=== PATIENT | male | born 1980 | race Caucasian/White ===

== ENCOUNTER 2018-03-27 18:21 | Emergency (ER) | payer OTHER, SELFPAY ==
[~2018-03-27] VITALS: Ht 177.8 cm; Wt 82.0 kg
[2018-03-27] MEDS ORDERED: SILVER SULF. CRM 1% , 25GM TP ONE (18:30)
[2018-03-27] MEDS ORDERED: SILVER SULF. CRM 1% , 25GM ONE (18:35)
[2018-03-27] MEDS ORDERED: LIDOCAINE-MPF 2%, 2ML ONE (18:49)
[2018-03-27] MEDS ORDERED: DIPH,PERTUSS(ACELL),TET VAC/PF 0.5 ML IM-VACC ONE ×2 (18:49→19:30)
[2018-03-27] MEDS ORDERED: IBUPROFEN 200 MG TABLET PO ONE (19:00)
[2018-03-27] MEDS ORDERED: LIDOCAINE-MPF 1%, 5ML INFIL ONE (19:00)
[2018-03-27] MEDS ORDERED: HYDROcodone/APAP 5/325 TABLET ONE ×2 (19:08→20:14)
[2018-03-27] MEDS ORDERED: IBUPROFEN 200 MG TABLET ONE (19:08)
[2018-03-27] MEDS ORDERED: HYDROcodone/APAP 5/325 TABLET PO ONE ×2 (19:30→20:30)
[2018-03-27 20:20] VITALS: BP 116/68
== END 2018-03-27 20:22 | disposition home or self-care (01) ==
LOC: ED 20:16
DX: T23.241A Burn of second degree of multiple right fingers (nail), including thumb, initial encounter (principal); T31.0 Burns involving less than 10% of body surface; Z88.8 Allergy status to other drugs, medicaments and biological substances; X18.XXXA Contact with other hot metals, initial encounter; Y93.89 Activity, other specified; Y99.8 Other external cause status; Y92.89 Other specified places as the place of occurrence of the external cause
CPT/HCPCS: 29125; 64450; 90471; 90715

== ENCOUNTER 2020-01-08 05:46 | Day surgery (SDC) | payer OTHER ==
[2020-01-06 11:18] VITALS: BP 128/87
[2020-01-06 12:07] LABS: BASOPHILS # (AUTO) 0.04 x10^3/uL (0-0.1); BASOPHILS % (AUTO) 1 % (0-1); EOSINOPHILS # (AUTO) 0.11 x10^3/uL (0-0.4); EOSINOPHILS % (AUTO) 2 % (1-7); LYMPHOCYTES # (AUTO) 1.81 x10^3/uL (1-3.4); LYMPHOCYTES % (AUTO) 36 % (22-44); MD NO; MEAN CORPUSCULAR HGB CONC 34.4 g/dL (33.2-36.2); MEAN CORPUSCULAR VOLUME 90.2 fL (81-97); MEAN PLATELET VOLUME 7.9 fL (7.4-10.4); MONOCYTES # (AUTO) 0.51 x10^3/uL (0.2-0.8); MONOCYTES % (AUTO) 10 % (2-9); NEUTROPHILS # (AUTO) 2.52 x10^3/uL (1.8-6.8); NEUTROPHILS % (AUTO) 51 % (42-75); PLATELET COUNT 252 x10^3/uL (130-400); RED BLOOD COUNT 5.14 x10^6/uL (4.38-5.82)
[2020-01-06 12:13] LABS: INTERNATIONAL NORMALIZED RATIO 0.97 (0.93-1.1); PROTHROMBIN TIME 10.3 Seconds (9.6-11.5)
[2020-01-06 12:15] LABS: ALANINE AMINOTRANSFERASE 30 U/L (12-78); ALBUMIN 4.1 g/dL (3.4-5.0); ANION GAP 6 mmol/L (5-15); CALCIUM 8.8 mg/dL (8.5-10.1); CHLORIDE 107 mmol/L (98-107); CREATININE 0.95 mg/dL (0.7-1.3)
[2020-01-06 12:17] LABS: ALKALINE PHOSPHATASE 65 U/L (45-117); TOTAL PROTEIN 8.1 g/dL (6.4-8.2)
[~2020-01-08] VITALS: Ht 177.8 cm; Wt 83.9 kg
[~2020-01-08 05:46] MED LIST: NONE PER PT
[2020-01-08] MEDS ORDERED: BUPIVACAINE/PF-EPI 0.5% 1:200K ONE (06:35)
[2020-01-08] MEDS ORDERED: LACTATED RINGERS 1,000 ML IV SCH (06:41)
[2020-01-08] MEDS ORDERED: CHLORHEXIDINE 15 ML UDC MM ONE (07:00)
[2020-01-08] MEDS ORDERED: FENTANYL PF 250 MCG/5ML ONE (07:25)
[2020-01-08] MEDS ORDERED: LIDOCAINE PF 2%, 5ML ONE (07:26)
[2020-01-08] MEDS ORDERED: ACETAMINOPHEN 325 MG TABLET PO PRN (08:00)
[2020-01-08] MEDS ORDERED: FENTANYL PF 100 MCG/2ML IV PRN (08:00)
[2020-01-08] MEDS ORDERED: OXYcodone 5 MG/5 ML ORAL.SOL UDC PO PRN (08:00)
[2020-01-08] MEDS ORDERED: PROMETHAZINE 25 MG SUPP PR PRN (08:00)
[2020-01-08] MEDS ORDERED: ONDANSETRON 2MG/ML, 2ML IVPush PRN (08:00)
[2020-01-08] MEDS ORDERED: PROMETHAZINE 25 MG/ML, 1ML IVPush PRN (08:00)
[2020-01-08] MEDS ORDERED: HYDROmorphone 1 MG/ML, 1ML INJ IVPush PRN (08:00)
[2020-01-08] MEDS ORDERED: ONDANSETRON 2MG/ML, 2ML ONE (08:10)
[2020-01-08] MEDS ORDERED: DEXAMETHASONE 4 MG/ML, 1ML ONE (08:10)
[2020-01-08] MEDS ORDERED: CEFAZOLIN 1,000 MG ONE (08:10)
[2020-01-08] MEDS ORDERED: PROPOFOL 10 MG/ML, 20ML ONE (08:10)
[2020-01-08] MEDS ORDERED: OXYcodone 5 MG/5 ML ORAL.SOL UDC ONE (08:25)
[2020-01-08] MEDS ORDERED: KETOROLAC 30 MG/1 ML ONE (08:25)
[2020-01-08] MEDS ORDERED: ACETAMINOPHEN 650 MG/20.3 ML UDC ONE (08:25)
[2020-01-08] MEDS ORDERED: KETOROLAC 30 MG/1 ML IVPush ONE (08:30)
[2020-01-08] MEDS ORDERED: FENTANYL PF 100 MCG/2ML ONE (08:32)
== END 2020-01-08 10:00 | disposition home or self-care (01) ==
LOC: OUT 05:46 → EDSTATUS 07:30 → OUT 10:00
PROVIDERS: ATTEND Surgery
DX: K43.0 Incisional hernia with obstruction, without gangrene (principal); Z11.59 Encounter for screening for other viral diseases; Z79.01 Long term (current) use of anticoagulants; Z88.8 Allergy status to other drugs, medicaments and biological substances; Z90.49 Acquired absence of other specified parts of digestive tract; Z98.890 Other specified postprocedural states
CPT/HCPCS: 36415; 49561; 80053; 85025; 85610; 87635; 93005; C1729; J0690; J1100; J1885; J2405; J2704; J3010; J7120

== ENCOUNTER → 2020-07-19 | Outpatient (CLI) | payer OTHER | END | disposition home or self-care (01) | LOC: STAR 08:29 | PROVIDERS: ATTEND Otolaryngology | DX: Z20.822 Contact with and (suspected) exposure to COVID-19 (principal); J34.2 Deviated nasal septum; J34.3 Hypertrophy of nasal turbinates | CPT/HCPCS: 87635 ==

== ENCOUNTER 2020-07-23 13:11 | Day surgery (SDC) | payer OTHER ==
[~2020-07-23] VITALS: Ht 177.8 cm; Wt 85.0 kg
[2020-07-23] MEDS ORDERED: CHLORHEXIDINE 15 ML UDC MM STA (13:29)
[2020-07-23] MEDS ORDERED: LACTATED RINGERS 1,000 ML IV SCH (13:30)
[2020-07-23 13:47] VITALS: BP 134/90
[2020-07-23] MEDS ORDERED: PROPOFOL 50 ML ONE (14:47)
[2020-07-23] MEDS ORDERED: THROMBIN 5,000 UNIT VIAL TP ONE (14:48)
[2020-07-23] MEDS ORDERED: FENTANYL PF 250 MCG/5ML ONE (14:48)
[2020-07-23] MEDS ORDERED: MIDAZOLAM 1 MG/ML, 2ML ONE (14:48)
[2020-07-23] MEDS ORDERED: OXYMETAZOLINE NASAL SPRAY 0.05%,30ML ONE (14:49)
[2020-07-23] MEDS ORDERED: EPINEPHRINE 1 MG/ML, 1ML ONE (14:49)
[2020-07-23] MEDS ORDERED: MUPIROCIN OINT 2%, 22GM ONE (14:49)
[2020-07-23] MEDS ORDERED: LIDOCAINE 1%, 20ML ONE (14:49)
[2020-07-23] MEDS ORDERED: ONDANSETRON 2MG/ML, 2ML ONE (15:21)
[2020-07-23] MEDS ORDERED: PROPOFOL 10 MG/ML, 20ML ONE (15:21)
[2020-07-23] MEDS ORDERED: SUCCINYLCHOLINE 20 MG/ML, 10ML ONE (15:21)
[2020-07-23] MEDS ORDERED: DEXAMETHASONE 4 MG/ML, 1ML ONE (15:21)
[2020-07-23] MEDS ORDERED: ROCURONIUM 10MG/ML,5ML ONE (15:21)
[2020-07-23] MEDS ORDERED: CEFAZOLIN 1,000 MG ONE (15:21)
[2020-07-23] MEDS ORDERED: DIPHENHYDRAMINE 50 MG/ML, 1ML IVPush PRN (16:00)
[2020-07-23] MEDS ORDERED: morphine SULFATE 10 MG/ML, 1ML IVPush PRN (16:00)
[2020-07-23] MEDS ORDERED: OXYcodone 5 MG/5 ML ORAL.SOL UDC PO PRN (16:00)
[2020-07-23] MEDS ORDERED: MEPERIDINE/PF 25MG/0.5ML IVPush PRN (16:00)
[2020-07-23] MEDS ORDERED: ACETAMINOPHEN 325 MG TABLET PO PRN (16:00)
[2020-07-23] MEDS ORDERED: PROMETHAZINE 25 MG/ML, 1ML IVPush PRN (16:00)
[2020-07-23] MEDS ORDERED: DIAZEPAM 5 MG/ML, 2ML IVPush PRN (16:00)
[2020-07-23] MEDS ORDERED: FENTANYL PF 100 MCG/2ML IV PRN (16:00)
[2020-07-23] MEDS ORDERED: EPHEDRINE 50 MG/ML, 1ML IM PRN (16:00)
[2020-07-23] MEDS ORDERED: ONDANSETRON 2MG/ML, 2ML IVPush PRN (16:00)
[2020-07-23] MEDS ORDERED: EPHEDRINE 50 MG/ML, 1ML IVPush PRN (16:00)
[2020-07-23] MEDS: LABETALOL 5MG/ML, 20ML IV PRN ×2 (16:43→17:10)
[2020-07-23] MEDS ORDERED: LABETALOL 5MG/ML, 20ML ONE (16:44)
[2020-07-23] MEDS ORDERED: OXYcodone 5 MG/5 ML ORAL.SOL UDC ONE (16:58)
[2020-07-23] MEDS ORDERED: FENTANYL PF 100 MCG/2ML ONE (17:16)
[2020-07-23] MEDS ORDERED: ACETAMINOPHEN 325 MG TABLET ONE (17:28)
== END 2020-07-23 18:35 | disposition home or self-care (01) ==
LOC: OUT 13:11
PROVIDERS: ATTEND Otolaryngology
DX: J34.2 Deviated nasal septum (principal); J34.3 Hypertrophy of nasal turbinates; Z88.8 Allergy status to other drugs, medicaments and biological substances; Z72.89 Other problems related to lifestyle; Z98.890 Other specified postprocedural states; Z82.49 Family history of ischemic heart disease and other diseases of the circulatory system; Z83.3 Family history of diabetes mellitus; Z87.81 Personal history of (healed) traumatic fracture
CPT/HCPCS: 30140; 30520; J0171; J0330; J0690; J1100; J2250; J2405; J2704; J3010